=== PATIENT | female | born 2000 | race Hispanic/Latino ===

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

== ENCOUNTER 2020-01-27 10:21 | Observation (INO) | payer MEDICAID ==
[2020-01-27 11:25] LABS: APPEARANCE,URINE Clear (CLEAR); BILIRUBIN,URINE Negative (NEGATIVE); COLOR,URINE Yellow (YELLOW); GLUCOSE, URINE (UA) Negative (NEGATIVE); KETONES,URINE Negative (NEGATIVE); LEUKOCYTE ESTERASE ,URINE Small (NEGATIVE); NITRATE,URINE Negative (NEGATIVE); OCCULT BLOOD,URINE Negative (NEGATIVE); PROTEIN,URINE Negative (NEGATIVE); UROBILINOGEN,URINE 0.2 mg/dL (0.2-1.0)
[2020-01-27 11:35] LABS: BACTERIA,URINE Rare /HPF (None Seen); RBC,URINE 0-1 /HPF (0-1); SQUAMOUS EPITHELIAL CELL,UR Rare /HPF (0-2)
[2020-01-27] MEDS ORDERED: CEFTRIAXONE SODIUM 1 GM ONE (11:56)
[2020-01-27] MEDS ORDERED: CEFTRIAXONE SODIUM 1 GM IM SCH (12:00)
[2020-01-27] MEDS ORDERED: LIDOCAINE HCL-MPF 1% 2ML VIAL ONE (12:00)
== END 2020-01-27 14:11 | disposition home or self-care (01) ==
LOC: EDH 10:21 → LDH 10:42
PROVIDERS: ADMIT Obstetrics & Gynecology; ATTEND Obstetrics & Gynecology
DX: O42.913 Preterm premature rupture of membranes, unspecified as to length of time between rupture and onset of labor, third trimester (principal); R10.9 Unspecified abdominal pain; Z3A.29 29 weeks gestation of pregnancy
CPT/HCPCS: 81001; 96372; 99284; G0378 ×3; J0696; J3490; 96374

== ENCOUNTER 2021-05-11 02:00 | Emergency (ER) | payer MEDICAID ==
[~2021-05-11] VITALS: Ht 157.5 cm; Wt 59.0 kg
[2021-05-11 02:32] VITALS: BP 116/65
[2021-05-11] MEDS ORDERED: ACET1TAB25 PO (03:17)
== END 2021-05-11 03:33 | disposition home or self-care (01) ==
LOC: EDH 02:10
DX: S91.201A Unspecified open wound of right great toe with damage to nail, initial encounter (principal); Z79.899 Other long term (current) drug therapy; W22.8XXA Striking against or struck by other objects, initial encounter; Y93.89 Activity, other specified; Y92.89 Other specified places as the place of occurrence of the external cause; Y99.8 Other external cause status

== ENCOUNTER 2021-12-17 10:11 | Emergency (ER) | payer MEDICAID ==
[~2021-12-17] VITALS: Ht 152.4 cm; Wt 59.0 kg
[~2021-12-17 10:11] MED LIST changes: +ACET1TAB25 PO
[2021-12-17] MEDS ORDERED: ACETAMINOPHEN 500 MG TABLET PO ONE (12:30)
[2021-12-17] MEDS ORDERED: ACET-66 PO (13:19)
[2021-12-17] MEDS ORDERED: PREN-154 PO (13:19)
[2021-12-17 13:32] VITALS: BP 119/63
== END 2021-12-17 13:32 | disposition home or self-care (01) ==
LOC: EDH 10:11
DX: O26.891 Other specified pregnancy related conditions, first trimester (principal); R07.89 Other chest pain; Z3A.01 Less than 8 weeks gestation of pregnancy; Z98.890 Other specified postprocedural states
CPT/HCPCS: 71046; 81025; 93005

== ENCOUNTER 2022-07-29 19:11 | Emergency (ER) | payer MEDICAID ==
[~2022-07-29] VITALS: Ht 157.5 cm; Wt 58.1 kg
[~2022-07-29 19:11] MED LIST changes: +ACET-2079 PO; +ACET-66 PO; -ACET1TAB25 PO; +AMOX1TAB16 PO; +IBUP-2077 PO
[2022-07-29 19:53] LABS: APPEARANCE,URINE CLEAR (CLEAR); BILIRUBIN,URINE NEGATIVE (NEGATIVE); COLOR,URINE LIGHT-YELLOW (YELLOW); GLUCOSE, URINE (UA) NEGATIVE (NEGATIVE); KETONES,URINE NEGATIVE (NEGATIVE); LEUKOCYTE ESTERASE ,URINE NEGATIVE Leu/uL (NEGATIVE); NITRATE,URINE NEGATIVE (NEGATIVE); OCCULT BLOOD,URINE NEGATIVE (NEGATIVE); PH,URINE 5.5 (5.0-8.0); PROTEIN,URINE NEGATIVE (NEGATIVE); UROBILINOGEN,URINE 0.2 mg/dL (0.2-1.0)
[2022-07-29 19:55] LABS: BACTERIA,URINE RARE /HPF (None Seen); HCG,QUALITATIVE URINE NEGATIVE (NEGATIVE); MUCUS,URINE FEW LPF (None Seen); RBC,URINE 0-1 /HPF (0-1); SQUAMOUS EPITHELIAL CELL,UR FEW /HPF (0-2); WBC,URINE 0-1 /HPF (0-1)
[2022-07-29 19:56] LABS: BASOPHILS % (AUTO) 0.3 % (0.0-5.0); EOSINOPHILS % (AUTO) 4.7 % (0.0-8.0); HEMATOCRIT 36.1 % (36-48); LYMPHOCYTES % (AUTO) 31.3 % (21.0-51.0); MEAN CORPUSCULAR HEMOGLOBIN 27.6 pg (27.0-33.0); MEAN CORPUSCULAR HGB CONC 33.5 g/dL (32.0-36.0); MEAN CORPUSCULAR VOLUME 82.4 fL (80-100); MONOCYTES % (AUTO) 6.7 % (3.0-13.0); NEUTROPHILS % (AUTO) 56.7 % (40.0-77.0); PLATELET COUNT (AUTO) 251 K/uL (130-400); RED BLOOD CELL COUNT(AUTO) 4.38 MIL/uL (4.00-5.50); RED CELL DISTRIBUTION WIDTH 13.3 % (11.0-15.5); WHITE BLOOD COUNT (AUTO) 9.3 K/uL (4.8-10.8)
[2022-07-29] MEDS ORDERED: IBUPROFEN 600 MG TABLET PO ONE (20:00)
[2022-07-29 20:08] LABS: CREATININE 0.7 mg/dL (0.5-1.5); POTASSIUM 3.5 mmol/L (3.5-5.1)
[2022-07-29 20:15] LABS: ALBUMIN 3.6 g/dL (3.5-5.0); TOTAL PROTEIN, SERUM 7.6 g/dL (6.0-8.3)
[2022-07-29] MEDS ORDERED: IBUP-2070 PO (20:52)
[2022-07-29 21:18] VITALS: BP 107/58
== END 2022-07-29 21:22 | disposition home or self-care (01) ==
LOC: EDH 19:11
DX: K11.21 Acute sialoadenitis (principal); Z20.822 Contact with and (suspected) exposure to COVID-19; Z79.899 Other long term (current) drug therapy; Z98.890 Other specified postprocedural states
CPT/HCPCS: 99283; 87635; 80053; 85025; 87880; 86308; 87804 ×2; 81001; 81025; 36415; C9803

== ENCOUNTER 2022-08-27 09:00 | Emergency (ER) | payer MEDICAID ==
[~2022-08-27] VITALS: Ht 157.5 cm; Wt 56.7 kg
[~2022-08-27 09:00] MED LIST changes: +IBUP-2070 PO
[2022-08-27 10:06] LABS: CARBON DIOXIDE 26 mmol/L (21-32); CHLORIDE 103 mmol/L (101-111); CREATININE 0.7 mg/dL (0.5-1.5); GLOMERULAR FILTR. RATE CALC 112 mL/min (>60); GLUCOSE,RANDOM 98 mg/dL (70-105); POTASSIUM 4.3 mmol/L (3.5-5.1); SODIUM SERUM 133 mmol/L (136-145); UREA NITROGEN, BLOOD 7 mg/dL (7-18)
[2022-08-27 10:31] LABS: ALANINE AMINOTRANSFERASE 14 U/L (12-78); ALBUMIN 3.3 g/dL (3.5-5.0); ALCOHOL, BLOOD < 3 mg/dL (0-10); ASPARTATE AMINOTRANSFERASE 11 U/L (10-37); HCG,QUANTITATIVE 68189 mIU/mL (0-5); TOTAL PROTEIN, SERUM 6.8 g/dL (6.0-8.3)
[2022-08-27 11:03] LABS: APPEARANCE,URINE CLEAR (CLEAR); BILIRUBIN,URINE NEGATIVE (NEGATIVE); COLOR,URINE LIGHT-YELLOW (YELLOW); GLUCOSE, URINE (UA) NEGATIVE (NEGATIVE); KETONES,URINE NEGATIVE (NEGATIVE); LEUKOCYTE ESTERASE ,URINE 25 Leu/uL (NEGATIVE); NITRATE,URINE NEGATIVE (NEGATIVE); OCCULT BLOOD,URINE NEGATIVE (NEGATIVE); PROTEIN,URINE NEGATIVE (NEGATIVE); UROBILINOGEN,URINE 0.2 mg/dL (0.2-1.0)
[2022-08-27 11:09] LABS: BASOPHILS % (AUTO) 0.2 % (0.0-5.0); EOSINOPHILS % (AUTO) 3.6 % (0.0-8.0); HEMATOCRIT 38.2 % (36-48); LYMPHOCYTES % (AUTO) 17.6 % (21.0-51.0); MEAN CORPUSCULAR HEMOGLOBIN 27.5 pg (27.0-33.0); MEAN CORPUSCULAR HGB CONC 33.5 g/dL (32.0-36.0); MEAN CORPUSCULAR VOLUME 82.2 fL (80-100); MONOCYTES % (AUTO) 4.8 % (3.0-13.0); NEUTROPHILS % (AUTO) 73.3 % (40.0-77.0); PLATELET COUNT (AUTO) 279 K/uL (130-400); RED BLOOD CELL COUNT(AUTO) 4.65 MIL/uL (4.00-5.50); RED CELL DISTRIBUTION WIDTH 13.5 % (11.0-15.5); WHITE BLOOD COUNT (AUTO) 6.4 K/uL (4.8-10.8)
[2022-08-27] MEDS ORDERED: 0.9%NACL 1000ML 2,000 ML IV SCH (11:30)
[2022-08-27 11:41] LABS: BACTERIA,URINE Few /HPF (None Seen); RBC,URINE 0-1 /HPF (0-1); WBC,URINE 0-1 /HPF (0-1)
[2022-08-27] MEDS ORDERED: 0.9%NACL 1000ML 1,000 ML IV ONE (11:47)
[2022-08-27 12:38] VITALS: BP 108/57
[2022-08-27] MEDS ORDERED: ONDA-104 PO (13:51)
== END 2022-08-27 14:08 | disposition home or self-care (01) ==
LOC: EDH 09:00
DX: O26.91 Pregnancy related conditions, unspecified, first trimester (principal); R55 Syncope and collapse; Z20.822 Contact with and (suspected) exposure to COVID-19; Z3A.01 Less than 8 weeks gestation of pregnancy
CPT/HCPCS: 99285; 96360; 76801; 87635; 84484; 80053; 84702; 85025; 87804 ×2; 81001; 36415; 93005; C9803; J7030

== ENCOUNTER 2022-11-19 08:53 | Emergency (ER) | payer MEDICAID ==
[~2022-11-19] VITALS: Ht 157.5 cm; Wt 59.9 kg
[~2022-11-19 08:53] MED LIST changes: +ONDA-104 PO
[2022-11-19] MEDS ORDERED: ACETAMINOPHEN 500 MG TABLET PO STA (09:05)
[2022-11-19] MEDS ORDERED: LIDOCAINE HCL 2% VISCOUS 15 ML UDCUP ONE (09:53)
[2022-11-19] MEDS ORDERED: LIDOCAINE HCL 2% VISCOUS 15 ML UDCUP PO STA (09:53)
[2022-11-19] MEDS ORDERED: ACET-66 PO (10:51)
[2022-11-19 11:31] VITALS: BP 126/78
== END 2022-11-19 11:33 | disposition home or self-care (01) ==
LOC: EDH 08:53
DX: O99.612 Diseases of the digestive system complicating pregnancy, second trimester (principal); K03.81 Cracked tooth; K08.89 Other specified disorders of teeth and supporting structures; Z3A.18 18 weeks gestation of pregnancy; Z79.899 Other long term (current) drug therapy; Z98.890 Other specified postprocedural states

== ENCOUNTER 2024-12-23 05:09 | Emergency (ER) | payer MEDICAID ==
[~2024-12-23] VITALS: Ht 157.5 cm; Wt 78.9 kg
[~2024-12-23 05:09] MED LIST changes: -ACET-66 PO; -AMOX1TAB16 PO; -FERR324T9 PO; -IBUP-2070 PO; -IBUP-2077 PO; -ONDA-104 PO; -RANI25VI IJ
--- NOTE | 2024-12-23 05:18 | ERN ---
ED Note History of Present Illness Stated Complaint: C/O CONTRACTIONS ONSET 0300 AM; 34 WKS Chief Complaint: OB>20 weeks gest. Time Seen by MD: 05:12 Dictation: This is a 24-year-old female who presented to the emergency room with a uterine contractions starting at 3:00 a.m.. Which is about little over 2 hours prior to presentation. Contractions or frequency is once in 527 minutes. No history of any vaginal bleeding or discharge no amniotic fluid leakage. She stated that she was 34 weeks and she is 5 para 4. Blood pressure 106/67 pulse 89, respiratory rate of 20, afebrile pulse oximetry 98% on room air She has a history of Schaffer's palsy and x3. Her 1st was a normal vaginal delivery. Second resulted in hr deceleration resulting in a . No history of any related complications. 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 Allergies: Coded Allergies: No Known Drug Allergies (Unverified Allergy, Unknown, 06/09/17) Home Meds Reported Medications Acetaminophen with Codeine (Acetaminophen-Cod #3 Tablet) 1 Each Tablet, 1 EACH PO Q6H PRN for PAIN LEVEL 5 TO 10, #20 TAB 03/23/23 Vits #93/Iron Fum/FA ( Formula Tablet) 1 Each Tablet, 1 EACH PO DAILY, TAB 09/28/18 Past Medical History Past Medical History: No Pertinent History Additional Past Medical Hx: SCHAFFER'S PALSY Surgical History: Surgical History Other: CSECTION X2 Family History: Negative Social History: Negative, Lives with family History: Not Applicable LMP: Apr 19, 2024 : 5 Para: 4 Aborts: 0 RN Note Reviewed/Agreed w/PFSH: Yes Review of System Dictation Constitutional: Negative for fever,chills, and weight loss Eyes: Negative for injury, pain,redness, and discharge ENT: Negative for injury,pain or swelling Cardiovascular: Negative for chest pain, palpitations, and edema Respiratory: Negative for shortness of breath, cough, and wheezing, Abdomen/GI: Negative for abdominal pain, nausea, vomiting, diarrhea, and constipation Back: Negative for injury and pain : Negative for injury, bleeding and discharge uterine contractions-once in 5- 7 minutes MS/Extremity: Negative for injury and deformity Skin: Negative for rash, and discoloration Neuro: Negative for headache, weakness, numbness, tingling, and seizure Psych: Negative for suicide ideation, homicidal ideation, and hallucinations Initial Vital Sign VS Vital Signs Date Time Temp Pulse Resp B/P (MAP) Pulse Ox O2 Delivery O2 Flow Rate FiO2 12/23/24 05:11 98.1 93 20 126/63 100 Room Air 12/23/24 05:33 0 21 Physical Exam Dictation General: awake, alert, NAD Head/Face: Normocephalic, atraumatic Eyes: PERRL, EOMI, vision at baseline ENT: oral cavity clear, TMs clear, no signs of infection Neck: Trachea midline, supple, no nuchal rigidity Cardiovascular: RRR, normal S1/S2, No MRGs, no JVD Respiratory: CTAB, no respiratory distress, No rales or wheezes Abdomen: Soft, non-tender, non-distended, normal bowel sounds, no guarding or r ebound. Skin: Warm, dry, normal turgor, no rash MS/Extremity: Pulses equal, no cyanosis, neurovascular intact, FROM Neuro: COAx4, GCS 15, strength 5/5, CN 2-12 intact, normal cerebellar exam, normal gait, Psych: Normal behavior, mood, and affect normal Extremities-trace edema without any palpable cords, Homans sign is negative Results (Laboratory/Radiology) Laboratory/Radiology Laboratory Tests Test 12/23/24 05:29 White Blood Count 10.8 K/uL (4.8-10.8) Red Blood Count 4.15 MIL/uL (4.00-5.50) Hemoglobin 10.5 g/dL (12.0-16.0) L Hematocrit 32.9 % (36-48) L Mean Corpuscular Volume 79.3 fL (79-99) Mean Corpuscular Hemoglobin 25.3 pg (27.0-33.0) L Mean Corpuscular Hemoglobin Concent 31.9 g/dL (32.0-36.0) L Red Cell Distribution Width 14.2 % (11.0-15.5) Platelet Count 211 K/uL (130-400) Mean Platelet Volume 10.2 fL (7.5-10.5) Immature Granulocyte % (Auto) 1.5 % (0-1) H Neutrophils (%) (Auto) 66.4 % (40.0-77.0) Lymphocytes (%) (Auto) 21.1 % (21.0-51.0) Monocytes (%) (Auto) 7.5 % (3.0-13.0) Eosinophils (%) (Auto) 3.0 % (0.0-8.0) Basophils (%) (Auto) 0.5 % (0.0-5.0) Neutrophils # (Auto) 7.2 K/uL (1.8-7.7) Lymphocytes # (Auto) 2.3 K/uL (1.0-4.8) Monocytes # (Auto) 0.8 K/uL (0.1-1.0) Eosinophils # (Auto) 0.33 K/uL (0.00-0.70) Basophils # (Auto) 0.05 K/uL (0.00-0.20) Absolute Immature Granulocyte (auto 0.16 K/uL (0-1) Nucleated Red Blood Cells 0.0 % (0.0-0.19) Sodium Level 138 mmol/L (136-145) Potassium Level 3.8 mmol/L (3.5-5.1) Chloride Level 103 mmol/L (101-111) Carbon Dioxide Level 24 mmol/L (21-32) Blood Urea Nitrogen 7 mg/dL (7-18) Creatinine 0.7 mg/dL (0.5-1.0) Glomerular Filtration Rate Calc 124 mL/min (>90) Random Glucose 93 mg/dL (70-105) Total Calcium 8.8 mg/dL (8.5-10.1) Labs Reviewed?: Yes ED Course ED Course Orders Procedure Category Date Status Time Cbc With Differential LAB 12/23/24 Complete 05:21 Basic Metabolic Panel LAB 12/23/24 Complete 05:21 Urinalysis Profile LAB 12/23/24 Logged 05:21 0.9%Nacl 1000ml (Ns PHA 12/23/24 Complete 1000ml) 05:30 Current Medications Medications (Trade) Dose Ordered Sig/Jhon Route PRN Reason Start Time Stop Time Status Last Admin Dose Admin Sodium Chloride 1,000 ml @ 0 mls/hr ONCE ONCE IV 12/23/24 05:30 12/23/24 05:31 DC 12/23/24 05:37 Vital Signs Date Time Temp Pulse Resp B/P (MAP) Pulse Ox O2 Delivery O2 Flow Rate FiO2 12/23/24 05:33 98.1 96 18 106/67 98 Room Air* 0 21 12/23/24 05:11 98.1 93 20 126/63 100 Room Air We will perform diagnostic labs, advanced imaging and administer medications according to the patient's complaint. Once the results are available, will review and personally interpreted the labs to rule out any acute life- threatening emergency the trach require immediate intervention and treatment. I will then re-evaluate the patient after treatment and diagnostic exams have return to determine whether the patient requires any further testing, can safely be discharged home or need further admission to hospital for additional treatment and evaluation. Gentle hydration initiated as we await labs and arrangements for transfer to [facility] OBGYN services. heart rate monitoring shows a heart rate of 138-150. Patient appears comfortable. Once patient is stabilized we will initiate transfer to a facility with OBGYN services. 5:59 a.m.-EMS here to transport the patient Medical Decision Making MDM MDM: Differential diagnosis: Dehydration, premature labor Rationale: Tests considered and ordered secondary to shared decision making include: labs, ECG and radiology Previous outside records reviewed: Old ER visits. Risk of complication and/or morbidity or mortality of patient management: None Medications-Per medication reconciliation Need for hospitalization: Patient does meet criteria for hospitalization. Need for emergency major/minor surgery: No There are no social concerns with this patient. Prescription drug management Prescriptions will include symptomatic care Patient's prior external medical records from other ER visits were reviewed by me as indicated. Prior testing and results from previous visits were reviewed. Prior tests were taken into account with medical decision making and resource utilization, independent historian/historians were used to obtain complete medical history. I independently interpreted the test that were performed, results were reviewed by me and considered findings on radiology if ordered. Medical management and examination interpretation discussions were had by me with other qualified healthcare professionals as indicated for the patient's care. PLEASE NOTE THAT THE PATIENT [facility] THERE IS NO AVAILABILITY AT THIS FACILITY Problem List Problem List: (1) Uterine contractions at greater than 20 weeks of gestation (2) DX & DISP Disposition: Transfer Departure Impression: Primary Impression: Uterine contractions at greater than 20 weeks of gestation Additional Impression: Condition: Stable Additional Instructions: The patient has been informed about all the diagnostic tests and procedures carried out in the emergency room today and has confirmed understanding of the results. Patient will be transferred to a facility that provides a higher level of care since such services are not accessible locally or within our immediate community. The patient is alert oriented and not experiencing any acute distress. There are no signs of sepsis and patient's hemodynamic status is stable at the moment. Medically, the patient is considered stable for transfer Patient is being transferred to [facility] labor and delivery services as the services not available at this facility Referrals: BOYD PERES MD (PCP) MARYLOU CALLOWAY MD Dec 23, 2024 05:18
[2024-12-23 05:33] VITALS: BP 106/67; PULSE 96; RESP 18; TEMP 98; O2SAT 98
[2024-12-23] MEDS: 0.9%NACL 1000ML 1,000 ML IV ONE (05:37)
[2024-12-23 05:43] LABS: BASOPHILS # (AUTO) 0.05 K/uL (0.00-0.20); BASOPHILS % (AUTO) 0.5 % (0.0-5.0); EOSINOPHILS # (AUTO) 0.33 K/uL (0.00-0.70); HEMATOCRIT 32.9 % (36-48); IMMATURE GRANULOCYTE ABSOLUTE 0.16 K/uL (0-1); LYMPHOCYTES # (AUTO) 2.3 K/uL (1.0-4.8); LYMPHOCYTES % (AUTO) 21.1 % (21.0-51.0); MEAN CORPUSCULAR HEMOGLOBIN 25.3 pg (27.0-33.0); MEAN CORPUSCULAR HGB CONC 31.9 g/dL (32.0-36.0); MEAN CORPUSCULAR VOLUME 79.3 fL (79-99); MONOCYTES # (AUTO) 0.8 K/uL (0.1-1.0); MONOCYTES % (AUTO) 7.5 % (3.0-13.0); NEUTROPHILS # (AUTO) 7.2 K/uL (1.8-7.7); NEUTROPHILS % (AUTO) 66.4 % (40.0-77.0); PLATELET COUNT (AUTO) 211 K/uL (130-400); RED BLOOD CELL COUNT(AUTO) 4.15 MIL/uL (4.00-5.50); RED CELL DISTRIBUTION WIDTH 14.2 % (11.0-15.5); WHITE BLOOD COUNT (AUTO) 10.8 K/uL (4.8-10.8)
[2024-12-23 05:54] LABS: CREATININE 0.7 mg/dL (0.5-1.0); POTASSIUM 3.8 mmol/L (3.5-5.1)
--- NOTE | 2024-12-23 05:55 | NUR ---
[place] [facility] [place] [facility] [place]
--- NOTE | 2024-12-23 06:01 | NUR ---
[facility] HERE FOR TRANSPORT TO [facility] L&D
== END 2024-12-23 06:04 | disposition short-term general hospital (02) ==
LOC: EDH 05:09
DX: O62.4 Hypertonic, incoordinate, and prolonged uterine contractions (principal); Z3A.34 34 weeks gestation of pregnancy; Z79.899 Other long term (current) drug therapy; Z98.890 Other specified postprocedural states
CPT/HCPCS: 99285; 80048; 85025; 36415; J7030